=== PATIENT | female | born 1960 ===

== ENCOUNTER 2016-11-22 07:26 | Day surgery (SDC) | payer OTHER ==
[2016-11-22] MEDS ORDERED: Midazolam 2 MG/2 ML VIAL ONE (11:09)
[2016-11-22] MEDS ORDERED: Propofol 10 mg/ml Inj (20 ML) ONE ×2 (11:09→11:32)
[2016-11-22] MEDS ORDERED: Lactated Ringer's 500 ML IV ONE ×2 (11:10→11:52)
[2016-11-22 12:14] VITALS: TEMP 97.8; O2SAT 100
[2016-11-22 13:45] VITALS: BP 100/65; PULSE 66; RESP 12
== END 2016-11-22 13:43 | disposition home or self-care (01) ==
LOC: C.ENDO 07:26
PROVIDERS: ATTEND Internal Medicine Gastroenterology
DX: K62.5 Hemorrhage of anus and rectum (principal); K64.8 Other hemorrhoids; K29.50 Unspecified chronic gastritis without bleeding; K25.9 Gastric ulcer, unspecified as acute or chronic, without hemorrhage or perforation; R10.13 Epigastric pain
CPT/HCPCS: 43239; 45378; 88305; 88342; J2250; J2704; J3010; J7120